=== PATIENT | female | born 1990 | race Caucasian/White ===

== ENCOUNTER 2017-01-03 18:45 | Emergency (ER) | payer OTHER ==
[~2017-01-03] VITALS: Ht 167.6 cm; Wt 105.2 kg
[2017-01-03 19:54] VITALS: BP 120/81
== END 2017-01-03 19:54 | disposition home or self-care (01) ==
LOC: ED 18:45
DX: N39.0 Urinary tract infection, site not specified (principal); Z88.0 Allergy status to penicillin; Z98.51 Tubal ligation status